=== PATIENT | male | born 1995 | race Caucasian/White ===

== ENCOUNTER 2024-12-06 18:56 | Emergency (ER) | payer MEDICAID, SELFPAY ==
[2024-12-06 19:38] VITALS: BP 128/82; PULSE 80; RESP 18; TEMP 36.8; O2SAT 97; BMI 25.0
[2024-12-06 20:51] LABS: Basophils % (Auto) 1 % (0-2.5); Nucleated Red Blood Cell % 0 /100 WBC (0)
[2024-12-06 21:03] LABS: Eosinophils # (Auto) 0.1 Thou/mm3 (0.0-0.5); Eosinophils % (Auto) 1 % (0-10); Hematocrit 48.9 % (41.0-53.0); Hemoglobin 16.6 g/dL (13.5-16.0); Immature Granulocytes % (Auto) 0 % (0-0); Immature Granulocytes Auto 0.02 Thou/mm3 (0.00-0.00); Lymphocytes # (Auto) 2.1 Thou/mm3 (1.0-4.8); Lymphocytes % (Auto) 25 % (10-50); Mean Corpuscular HGB Conc 33.9 g/dl (31.0-37.0); Mean Corpuscular Hemoglobin 30.1 pg (25.0-35.0); Mean Corpuscular Volume 89 fL (80-100); Monocytes # (Auto) 0.6 Thou/mm3 (0.0-0.8); Monocytes % (Auto) 8 % (0-12); Neutrophils # (Auto) 5.4 Thou/mm3 (1.8-7.7); Neutrophils % (Auto) 66 % (37-80); Platelet Count 269 Thou/mm3 (140-440); Red Blood Count 5.51 Miln/mm3 (4.50-5.90); White Blood Count 8.2 Thou/mm3 (3.8-10.6)
[2024-12-06 21:14] LABS: Alanine Aminotransferase 34 U/L (10-49); Albumin, Serum 5.3 gm/dL (3.5-5.0); Albumin/Globulin Ratio 1.8 (1.2-2.2); Alkaline Phosphatase 42 U/L (46-116); Anion Gap 10 (7-16); Aspartate Amino Transferase 37 U/L (0-34); BUN/Creatinine Ratio 16 Ratio (12-20); Bilirubin,Total 0.9 mg/dL (0.3-1.2); Blood Urea Nitrogen 19 mg/dL (9-23); Calcium 10.9 mg/dL (8.3-10.6); Calcium (Corrected) 10.9 mg/dL (8.5-10.1); Carbon Dioxide 27.5 mMol/L (20.0-31.0); Chloride 104 mMol/L (98-107); Creatinine (Component) 1.2 mg/dL (0.6-1.3); Estimated Creatinine Clearance 82.7 mL/min (>60); Globulin 2.9 gm/dL (2.3-3.5); Glucose 90 mg/dL (74-106); Osmolality,Calculated 283 (275-295); Potassium 4.3 mMol/L (3.4-5.1); Sodium 141 mMol/L (136-145); Thyroid Stimulating Hormone 11.24 uIU/mL (0.55-4.78); Total Protein 8.2 gm/dL (5.7-8.2); eGFR > 60 See Note
--- NOTE | 2024-12-07 | EDNOTE_ITS ---
ED Recheck Abnl Lab Rx-RME/HPI General Chief Complaint: Recheck/Abnormal Lab/Rx Stated Complaint: BLOODWORK FOR THYROID; PCP SENT Time Seen by Provider: 12/06/24 19:55 Arrival date/time: 12/06/24 18:56 29M with history of drug/psych presents to ED with several days of feeling weird, can cannot be more specific. Patient states last time this happened this thyroid levels were elevated, but patient never had meds for it. Patient went to PCP and was sent here for thyroid studies because clinic was closing. Limitations: no limitations Related Data Previous Rx's ?Medication ?Instructions ?Recorded clindamycin HCl 300 mg capsule 300 mg PO QID dog bite #28 caps 03/13/18 naproxen 500 mg tablet (Naprosyn) 500 mg PO BID PRN pa in #30 tabs 09/04/21 naproxen 500 mg tablet (Naprosyn) 500 mg PO BID #30 ta bs 05/16/22 ondansetron HCl 4 mg tablet 4 mg PO TID PRN nausea and 05/16/22 vomiting #14 tabs ondansetron 4 mg disintegrating 4 mg PO Q8H #14 tabs 0 12/25/23 tablet pantoprazole 20 mg tablet,delayed 20 mg PO QDAY #30 ta bs 12/25/23 release (Protonix) Allergies Allergy/AdvReac Type Severity Reaction Status Date / Time amoxicillin Allergy Unknown Verified 12/06/24 18:58 Penicillins Allergy Unknown RASH Verified 12/06/24 18:58 Review of Systems Review of Systems Systems Reviewed: All systems reviewed, normal except as documented Constitutional Constitutional: Reports system reviewed and no additional complaints, except as documented, Denies fever(s) and Denies headache(s) ENT Ears, Nose, Mouth, and Throat: Denies disequilibrium and Denies headache(s) Cardiovascular Cardiovascular: Reports system reviewed and no additional complaints, except as documented, Denies chest pain and Denies dyspnea Respiratory Respiratory: Reports system reviewed and no additional complaints, except as documented, Denies cough and Denies dyspnea Gastrointestinal Gastrointestinal: Reports system reviewed and no additional complaints, except as documented, Denies abdominal pain, Denies nausea and Denies vomiting Neurologic Neurologic: Reports system reviewed and no additional complaints, except as documented, Denies confusion, Denies disequilibrium and Denies headache(s) Psychiatric Psychiatric: Denies confusion Past Medical History Past Medical History CARDIAC: Negative Cardiac Disorders or Congestive Heart Failure RESPIRATORY: Negative Chronic Obstructive Pulmonary Disease (COPD) or Asthma GENITOURINARY: Negative Renal Disease ENDOCRINE: Negative Diabetes Mellitus Type 1 or Diabetes Mellitus Type 2 HEMATOLOGIC: Negative Sickle Cell Disease PSYCHO/SOCIAL: Positive Recreational Drug Use Social History SMOKING STATUS: Never smoker 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 ED Exam General Limitations: Present no limitations General appearance: Present alert, in no apparent distress and anxious (jumpy) Head Head exam: Present atraumatic Eye Eye exam: Present normal appearance, PERRL and EOMI ENT ENT exam: Present normal exam, normal oropharynx and mucous membranes moist Neck Neck exam: Present normal inspection, full ROM and trachea midline Chest Chest inspection: Present normal inspection and symmetric chest wall rise Respiratory Respiratory exam: Present normal lung sounds bilaterally Cardiovascular Cardiovascular exam: Present regular rate, normal rhythm and normal heart sounds Abdominal Exam Abdominal exam: Present soft and normal bowel sounds Extremities Exam Extremities exam: Present normal inspection and full ROM Back Exam Back exam: Present normal inspection and full ROM Neurological Exam Neurological exam: Present alert, oriented X3 and CN II-XII intact Psychiatric Psychiatric exam: Present normal affect and normal mood Skin Skin exam: Present warm, dry, intact and normal color Course Quality Measures none Orders Category Date Time Status CBC Stat Lab 12/06/24 20:37 Completed CMP [Comprehensive Metabolic Panel] Stat Lab 12/06/24 20:37 Completed Free T4 (Free Thyroxine) Stat Lab 12/06/24 20:37 Completed TSH [Thyroid Stimulating Hormone] Stat Lab 12/06/24 20:37 Completed Vital Signs Vital signs: Vital Signs Temperature 98.2 F 12/06/24 19:38 Pulse Rate 80 12/06/24 19:38 Respiratory Rate 18 12/06/24 19:38 Blood Pressure 128/82 12/06/24 19:38 Pulse Oximetry (%) 97 12/06/24 19:38 Oxygen Delivery Method Room Air 12/06/24 19:38 O2 at 97% on RA and WNLs Recheck / Abnormal Lab / Rx MDM Narrative MDM Narrative:: 29M with history of drug/psych presents to ED with several days of feeling weird, can cannot be more specific. Patient states last time this happened this thyroid levels were elevated, but patient never had meds for it. Patient went to PCP and was sent here for thyroid studies because clinic was closing. Physical exam reveals normal pupil response and EOM. RRR. Lungs clear. Gait normal. Patient is afebrile, alert, but anxious/jumpy. No leukocytosis. CMP unremarkable. TSH elevated at 11 but T4 normal. Patient has PCP appt tomorrow and just wants the lab results to bring to PCP. Patient data External records reviewed:: [facility] previous records Clinical information provided by:: patient Social determinants that could affect healthcare access:: substance use Patient has the following chronic illnesses:: psych/drugs How is presenting disease/condition affected by chronic disease/condition?: exacerbated by Evaluation data The following diagnostics were reviewed and interpreted by me:: lab results Lab and/or radiology exams considered but not ordered:: ordered Interpretation Summary: above Medications / Prescriptions Medications or Prescriptions considered but not ordered:: not ordered Medication administrations:: n/a Consultations Consultation(s) initiated? (list below): No Diagnosis Recheck Differential Diagnosis: encounter for medication refill, encounter for wound recheck, encounter for recheck of burn, encounter for removal of sutures, warfarin-induced coagulopathy and other (elevated TSH, drug/psych) Most likely diagnosis given after review of the tests above:: elevated TSH Admission Indicated Admission indicated?: not indicated Admission Request Was there a request for admission?: No Disposition Plan Disposition Plan: Discharge Discharge Attestation Discharge Attestation: The patient and all family members were given an opportunity to ask questions and understood the discharge instructions. Discharge instructions specifically effects, indications for sooner follow up or return to the emergency department, and the expected course of current diagnosis. Patient condition: Stable Discharge Plan Plan Patient Disposition: HOME (Self Care) Disposition Comment: Stable Prescriptions/Referrals Prescriptions/Med Rec: No Action clindamycin HCl 300 mg capsule 300 mg PO QID Qty: 28 0RF naproxen [Naprosyn] 500 mg tablet 500 mg PO BID Qty: 30 0RF ondansetron HCl 4 mg tablet 4 mg PO TID PRN (Reason: nausea and vomiting) Qty: 14 0RF naproxen [Naprosyn] 500 mg tablet 500 mg PO BID PRN (Reason: pain) Qty: 30 0RF ondansetron 4 mg tablet,disintegrating 4 mg PO Q8H Qty: 14 0RF pantoprazole [Protonix] 20 mg tablet,delayed release (DR/EC) 20 mg PO QDAY Qty: 30 0RF Referrals: No Primary/Family,Physician [Primary Care Provider] - In 1 week Problem List Clinical Impression: Elevated TSH Patient/Caregiver Discharge Instructions Additional Instructions: Please follow-up with PCP within 24-48 hours and return immediately if symptoms worsen. Print Language: Kinyarwanda Stand Alone Forms: Patient Portal Info Letter PA/TUBE SIZER AND CUTTER OPERATOR Supervising Physician PA/TUBE SIZER AND CUTTER OPERATOR Supervising Physician: Dr. Ramos
== END 2024-12-06 21:45 | disposition home or self-care (01) ==
PROVIDERS: Physician Assistant; Emergency Provider Emergency Medicine
DX: R94.6 Abnormal results of thyroid function studies (principal)
CPT/HCPCS: 36415; 80053; 84439; 84443; 85025; 99283

== ENCOUNTER 2025-09-11 14:47 | Emergency (ER) | payer MEDICAID, SELFPAY ==
[2025-09-11 14:55] VITALS: BP 132/82; PULSE 70; RESP 18; TEMP 37; O2SAT 100; BMI 32.4
--- NOTE | 2025-09-11 15:15 | XR_ITS ---
Examination: CT abdomen and pelvis without contrast. Coronal 3-D reconstructions. Sagittal 2-D reconstructions. Date and time of exam: 09/11/2025 at 3:28 p.m. CTDI: vol (mGy): 8.1 DLP: (mGycm): 492 Comparison study 05/16/2022 CLINICAL HISTORY: Left lower abdominal pain and diarrhea Technique: Axial images of the abdomen have been obtained, 3 mm slice thickness Intravenous contrast material has not been administered. Low dose protocols were performed. One or more of the following dose reduction techniques were used; automated exposure control, adjustment of the mA and/or KV according to patient size, use of iterative reconstruction technique. Findings: Lower lungs are clear on this noncontrast study, the appearance of the liver spleen pancreas adrenal glands and kidneys is normal. Other loops of small bowel and colon appear normal the appendix is seen, filled with air and is normal. There is an exceptionally tiny, insignificant umbilical hernia filled with fat The lumbosacral spine and visible bones appear essentially normal. IMPRESSION: 1. The entire study is normal
[2025-09-11 15:42] LABS: Collection Type, Urine Clean Catch; Squamous Epithelial Cell,Urine 0 /hpf (0-5)
[2025-09-11 15:44] LABS: Basophils # (Auto) 0.0 Thou/mm3 (0.0-0.2); Basophils % (Auto) 1 % (0-2.5); Eosinophils # (Auto) 0.1 Thou/mm3 (0.0-0.5); Eosinophils % (Auto) 2 % (0-10); Hematocrit 47.7 % (41.0-53.0); Hemoglobin 16.3 g/dL (13.5-16.0); Immature Granulocytes Auto 0.02 Thou/mm3 (0.00-0.00); Lymphocytes # (Auto) 1.5 Thou/mm3 (1.0-4.8); Lymphocytes % (Auto) 31 % (10-50); Mean Corpuscular HGB Conc 34.2 g/dl (31.0-37.0); Mean Corpuscular Hemoglobin 30.1 pg (25.0-35.0); Mean Corpuscular Volume 88 fL (80-100); Monocytes # (Auto) 0.5 Thou/mm3 (0.0-0.8); Monocytes % (Auto) 10 % (0-12); Neutrophils # (Auto) 2.8 Thou/mm3 (1.8-7.7); Neutrophils % (Auto) 57 % (37-80); Nucleated Red Blood Cell # 0.00 Thou/mm3 (0.00-0.00); Nucleated Red Blood Cell % 0 /100 WBC (0); Platelet Count 219 Thou/mm3 (140-440); RDW Standard Deviation 42.4 fL (35.1-43.9); Red Blood Count 5.41 Miln/mm3 (4.50-5.90); White Blood Count 5.0 Thou/mm3 (3.8-10.6)
[2025-09-11] MEDS: ONDANSETRON ODT 4 MG TABRAP PO (15:44)
[2025-09-11] MEDS: DICYCLOMINE INJ 10 MG/ML 2ML VIAL IM (15:45)
[2025-09-11] MEDS: DIPHENOXYLATE/ATROP SULF 1 TAB PO (15:45)
[2025-09-11] MEDS: SODIUM CHLORIDE 0.9% 1000 ML 1,000 ML 999 ML IV (15:47)
[2025-09-11 16:01] LABS: Bilirubin,Urine Negative (Negative); Blood,Urine Negative (Negative); Clarity,Urine Clear (Clear/Hazy); Color,Urine Yellow (Lt Yel-Yel); Glucose, Urine Negative (Negative); Ketones,Urine Negative (Negative); Leukocyte Esterase,Urine Negative (Negative); Nitrite,Urine Negative (Negative); PH,Urine 6.0 (5.0-7.0); Protein,Urine Negative (Neg - Trace); RBC,Urine 3 /hpf (0-3); Specific Gravity,Urine 1.029 (1.001-1.035); Urobilinogen,Urine Negative mg/dL (0.0-1.0); WBC,Urine < 1 /hpf (0-5)
[2025-09-11 16:08] LABS: Alanine Aminotransferase 33 U/L (10-49); Albumin, Serum 4.8 gm/dL (3.5-5.0); Albumin/Globulin Ratio 1.5 (1.2-2.2); Alkaline Phosphatase 46 U/L (46-116); Anion Gap 9 (7-16); Aspartate Amino Transferase 34 U/L (0-34); BUN/Creatinine Ratio 16 Ratio (12-20); Bilirubin,Total 0.5 mg/dL (0.3-1.2); Blood Urea Nitrogen 16 mg/dL (9-23); Calcium 9.7 mg/dL (8.3-10.6); Calcium (Corrected) 9.7 mg/dL (8.5-10.1); Carbon Dioxide 24.8 mMol/L (20.0-31.0); Chloride 108 mMol/L (98-107); Creatinine (Component) 1.0 mg/dL (0.6-1.3); Estimated Creatinine Clearance 103.8 mL/min (>60); Globulin 3.1 gm/dL (2.3-3.5); Glucose 89 mg/dL (74-106); Lipase 56 U/L (12-53); Osmolality,Calculated 283 (275-295); Potassium 3.9 mMol/L (3.4-5.1); Sodium 142 mMol/L (136-145); Total Protein 7.9 gm/dL (5.7-8.2); eGFR > 60 See Note
--- NOTE | 2025-09-11 16:47 | EDNOTE_ITS ---
ED Abdominal Pain RME/HPI General Chief Complaint: Nausea/Vomiting/Diarrhea Stated complaint: I FEEL LIKE I HAVE FOOD POISONING. DIARRHEA Time seen by provider: 09/11/25 15:01 Arrival date/time: 09/11/25 14:47 this is a case of 30-year-old male with no medical history came in in the emergency room due to abdominal pain vomiting and diarrhea Which started 1 week ago after eating [place] food due to worsening of the symptoms this patient decided to sought consult here in the emergency room Limitations: no limitations Related Data Previous Rx's ?Medication ?Instructions ?Recorded clindamycin HCl 300 mg capsule 300 mg PO QID dog bite #28 caps 03/13/18 naproxen 500 mg tablet (Naprosyn) 500 mg PO BID PRN pa in #30 tabs 09/04/21 naproxen 500 mg tablet (Naprosyn) 500 mg PO BID #30 ta bs 05/16/22 ondansetron HCl 4 mg tablet 4 mg PO TID PRN nausea and 05/16/22 vomiting #14 tabs ondansetron 4 mg disintegrating 4 mg PO Q8H #14 tabs 0 12/25/23 tablet pantoprazole 20 mg tablet,delayed 20 mg PO QDAY #30 ta bs 12/25/23 release (Protonix) dicyclomine 20 mg tablet 20 mg PO TID PRN abdominal p ain 09/11/25 #20 tabs loperamide 2 mg capsule (Imodium 2 mg PO Q6H PRN loose stool #20 09/11/25 A-D) caps ondansetron 4 mg disintegrating 4 mg PO Q8H #20 tabs 1 11/12/24 tablet sulfamethoxazole 800 1 tab PO Q12H #20 tabs 09/11 mg-trimethoprim 160 mg tablet (Bactrim DS) Allergies Allergy/AdvReac Type Severity Reaction Status Date / Time amoxicillin Allergy Unknown Verified 09/11/25 14:50 Penicillins Allergy Unknown RASH Verified 09/11/25 14:50 Review of Systems Review of Systems Systems Reviewed: All systems reviewed, normal except as documented Past Medical History Past Medical History CARDIAC: Negative Cardiac Disorders or Congestive Heart Failure RESPIRATORY: Negative Chronic Obstructive Pulmonary Disease (COPD) or Asthma GENITOURINARY: Negative Renal Disease ENDOCRINE: Negative Diabetes Mellitus Type 1 or Diabetes Mellitus Type 2 HEMATOLOGIC: Negative Sickle Cell Disease PSYCHO/SOCIAL: Positive Recreational Drug Use Social History SMOKING STATUS: Never smoker 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 ED Exam General Limitations: Present no limitations General appearance: Present alert, in no apparent distress and other (Patient is awake alert oriented not in distress nontoxic looking well-hydrated well- nourished) Head Head exam: Present atraumatic, normocephalic and normal inspection Eye Eye exam: Present normal appearance, PERRL and EOMI ENT ENT exam: Present normal exam, normal oropharynx and mucous membranes moist Neck Neck exam: Present normal inspection, full ROM and trachea midline; Absent tenderness Chest Chest inspection: Present normal inspection and symmetric chest wall rise; Absent tenderness Respiratory Respiratory exam: Present normal lung sounds bilaterally; Absent respiratory distress or accessory muscle use Cardiovascular Cardiovascular exam: Present regular rate, normal rhythm and normal heart sounds; Absent bradycardia, tachycardia, systolic murmur or diastolic murmur Abdominal Exam Abdominal exam: Present soft and normal bowel sounds; Absent distention, tenderness, guarding, rebound, rigidity, diminished bowel sounds, hyperactive bowel sounds, hypoactive bowel sounds, organomegaly, psoas sign, obturator sign, Lockwood's sign, Rovsing's sign or tenderness at McBurney's Point Extremities Exam Extremities exam: Present normal inspection and full ROM Back Exam Back exam: Present normal inspection and full ROM Neurological Exam Neurological exam: Present alert, oriented X3, CN II-XII intact, normal gait and reflexes normal; Absent motor sensory deficit Psychiatric Psychiatric exam: Present normal affect and normal mood Skin Skin exam: Present warm, dry, intact, normal color and other (Excellent skin turgor) Course Quality Measures none Orders Category Date Time Status CT abdomen pelvis wo con Stat Exams 09/11/25 15:15 Completed CBC Stat Lab 09/11/25 15:33 Completed Comprehensive Metabolic Panel Stat Lab 09/11/25 15:33 Completed Lipase Stat Lab 09/11/25 15:33 Completed Urinalysis Stat Lab 09/11/25 15:38 Completed Dicyclomine Inj [Bentyl Inj] Med 09/11/25 15:15 Discontinued 10 mg IM X1 ONE Diphenoxylate/Atrop Sulf [Lomotil] Med 09/11/25 15:15 Discontinued 1 tab PO X1 ONE Ondansetron Odt [Zofran Odt] Med 09/11/25 15:15 Discontinued 4 mg PO X1 ONE Sodium Chloride 0.9% 1000 ml [Ns] 1,000 ml Med 09/11/25 15:15 Discontinued IV 999 mls/hr Vital Signs Vital signs: Vital Signs Temperature 98.6 F 09/11/25 14:55 Pulse Rate 70 09/11/25 14:55 Respiratory Rate 18 09/11/25 14:55 Blood Pressure 132/82 H 09/11/25 14:55 Pulse Oximetry (%) 100 09/11/25 14:55 Oxygen Delivery Method Room Air 09/11/25 14:55 Oxygen saturation is 100% Abdominal Pain MDM MDM Narrative MDM Narrative:: this is a case of 30-year-old male with no medical history came in in the emerg ency room due to abdominal pain vomiting and diarrhea Which started 1 week ago after eating [place] food due to worsening of the symptoms this patient decided to sought consult here in the emergency room physical examination patient is awake alert oriented not in distress nontoxic looking well-hydrated well- nourished abdominal exam is benign nonsurgical no guarding no rebound no rigidity no tenderness normal active bowel sound negative psoas negative straight or negative Rovsing's negative José's no Lockwood sign negative CVA tenderness blood test showed no leukocytosis no anemia kidney and liver function is normal no electrolyte imbalance lipase is normal urinalysis is normal CT scan is also normal based on my physical examination and history with result of the above tests patient noted to have a gastroenteritis possibly due to food poisoning thus patient was discharged with Bactrim Imodium for diarrhea Zofran for vomiting and dicyclomine for abdominal pain patient was given a bolus of normal saline here in the emergency room with Zofran for vomiting and Bentyl for pain and Lomotil for diarrhe diarrheaa at the time of exam no signs and symptoms of sepsis dehydration patient will be discharged home with stable condition hydration is advised for worsening symptoms or any emergent concern return precaution in the ER is at the advised Patient was discharged with comfortable condition walking with stable gait. Patient verbalized no further complains explained diagnosis and answered patient question. Patient is comfortable with the proposed management plan including the need to follow up with his/her primary care physician and any specialist if applicable Discussed patient for any urgent condition or worsening sx, He/She needed to go to emergency room immediately or call 911. Patient acknowledge the responsibility to follow up as instructed and to monitor her/his symptoms. For any persistence of the symptoms for more than 3-5 days return precaution advised. Discussed the result of the test and was given printed discharge instruction Patient data External records reviewed:: [facility] previous records Clinical information provided by:: patient Social determinants that could affect healthcare access:: none Patient has the following chronic illnesses:: None How is presenting disease/condition affected by chronic disease/condition?: no chronic disease Evaluation data The following diagnostics were reviewed and interpreted by me:: lab results and radiology exam(s) Lab and/or radiology exams considered but not ordered:: Reviewed Interpretation Summary: Reviewed Medications / Prescriptions Medications or Prescriptions considered but not ordered:: Given Medication administrations:: Medication Administration History Discontinued Medications Dicyclomine HCl (Dicyclomine Inj 10 Mg/Ml 2ml Vial) 10 mg IM X1 ONE Stop: 09/11/25 15:16 Last Admin: 09/11/25 15:45 Dose: 10 mg Documented By: STEWART Diphenoxylate HCl/Atropine (Diphenoxylate/Atrop Sulf 1 Tab) 1 tab PO X1 ONE Stop: 09/11/25 15:16 Last Admin: 09/11/25 15:45 Dose: 1 tab Documented By: STEWART Sodium Chloride (Ns) 1,000 mls @ 999 mls/hr IV .Q1H1M ONE Stop: 09/11/25 16:15 Last Admin: 09/11/25 15:47 Dose: 999 mls/hr Documented By: STEWART Ondansetron HCl (Ondansetron Odt 4 Mg Tabrap) 4 mg PO X1 ONE; Protocol Stop: 09/11/25 15:16 Last Admin: 09/11/25 15:44 Dose: 4 mg Documented By: STEWART Given Consultations Consultation(s) initiated? (list below): No Diagnosis Differential diagnosis abdominal pain: abdominal pain, acute appendicitis, calculus of kidney, constipation, diverticulitis, gastroenteritis, pancreatitis and small bowel obstruction Most likely diagnosis given after review of the tests above:: Acute gastroenteritis Admission Indicated Admission indicated?: not indicated Explain why admission is indicated or not indicated:: Not indicate Admission Request Was there a request for admission?: No Admission Attestation Admission request attestation: Not indicated Disposition Plan Disposition Plan: Discharge Discharge Attestation Discharge Attestation: The patient and all family members were given an opportunity to ask questions and understood the discharge instructions. Discharge instructions specifically effects, indications for sooner follow up or return to the emergency department, and the expected course of current diagnosis. Patient condition: Stable Discharge Plan Plan Patient Disposition: HOME (Self Care) Patient condition on transfer: Stable Prescriptions/Referrals Prescriptions/Med Rec: New sulfamethoxazole-trimethoprim [Bactrim DS] 800-160 mg tablet 1 tab PO Q12H Qty: 20 0RF loperamide [Imodium A-D] 2 mg capsule 2 mg PO Q6H PRN (Reason: loose stool) Qty: 20 0RF dicyclomine 20 mg tablet 20 mg PO TID PRN (Reason: abdominal pain) Qty: 20 0RF ondansetron 4 mg tablet,disintegrating 4 mg PO Q8H Qty: 20 0RF No Action clindamycin HCl 300 mg capsule 300 mg PO QID Qty: 28 0RF naproxen [Naprosyn] 500 mg tablet 500 mg PO BID Qty: 30 0RF ondansetron HCl 4 mg tablet 4 mg PO TID PRN (Reason: nausea and vomiting) Qty: 14 0RF naproxen [Naprosyn] 500 mg tablet 500 mg PO BID PRN (Reason: pain) Qty: 30 0RF ondansetron 4 mg tablet,disintegrating 4 mg PO Q8H Qty: 14 0RF pantoprazole [Protonix] 20 mg tablet,delayed release (DR/EC) 20 mg PO QDAY Qty: 30 0RF Problem List Clinical Impression: Abdominal pain, Vomiting and diarrhea, Gastroenteritis Patient/Caregiver Discharge Instructions Education Materials: Abdominal Pain, Treating Diarrhea, ED Gastroenteritis, Noninfectious, ED Vomiting (Adult) Additional Instructions: follow-up with your primary care physician in 2 days for reevaluation worsening symptoms or any emergent condition call 911 or go to the nearest emergency room take your medication as directed finish the course of antibiotic increase water intake keep hydrated Pedialyte Gatorade for every bouts of vomiting and or diarrhea and for hydration Print Language: Barbadian Stand Alone Forms: Kelly Award Info., Patient Portal Info Letter PA/ACADEMIC SUPPORT ASSISTANT Supervising Physician PA/ACADEMIC SUPPORT ASSISTANT Supervising Physician: Dr. ford
== END 2025-09-11 17:00 | disposition home or self-care (01) ==
LOC: SERX 16:43
PROVIDERS: Nurse Practitioner Family; Emergency Provider Family Medicine
DX: K52.9 Noninfective gastroenteritis and colitis, unspecified (principal)
CPT/HCPCS: 36415; 74176; 80053; 81001; 83690; 85025; 96360; 96372; 99283; J0500; J7030; Q0162; A9270